=== PATIENT | female | born 1955 | race Caucasian/White ===

== ENCOUNTER 2017-04-25 13:17 | Emergency (ER) | payer MEDICARE, OTHER ==
[2017-04-25 13:41] VITALS: BP 116/67
[2017-04-25] MEDS ORDERED: HYDROmorphone 1 MG/ML Syringe IM ONE (13:58)
--- NOTE | 2017-04-25 14:04 | EDM.PDOC ---
ED HPI GENERAL MEDICAL PROBLEM - General Chief Complaint: Upper Extremity Injury/Pain Stated Complaint: PAIN Time Seen by Provider: 04/25/17 13:50 Source of Information: Reports: Patient History Limitations: Reports: No Limitations - History of Present Illness INITIAL COMMENTS - FREE TEXT/NARRATIVE: This 61 yo female patient reports to the ED with left side chest/breast pain. The patient reports her pain started last Sunday after a ground level fall. The patient has been seen in the [facility] twice this week for the pain, had a chest x-ray and a chest CT. The patient was advised that if her pain is unbearable she should come to the ED. The patient is under a pain management provider at [facility] in [place]. Onset Date: 04/20/17 Duration: Constant Location: Reports: Chest (left side of chest/breast) Quality: Reports: Ache, Sharp Severity: Severe Improves with: Reports: None Worsens with: Reports: None Context: Reports: Trauma (ground level fall) Left Breast Pain Score (Numeric/FACES): 8 - Related Data Allergies Allergy/AdvReac Type Severity Reaction Status Date / Time aspirin Allergy Unknown UNKNOWN Verified 04/25/17 13:49 atenolol Allergy Unknown UNKNOWN Verified 04/25/17 13:49 atorvastatin Allergy Unknown UNKNOWN Verified 04/25/17 13:49 celecoxib Allergy Unknown UNKNOWN Verified 04/25/17 13:49 erythromycin base Allergy Unknown UNKNOWN Verified 04/25/17 13:49 hydrocortisone Allergy Unknown UNKNOWN Verified 04/25/17 13:49 ibuprofen Allergy Unknown UNKNOWN Verified 04/25/17 13:49 indomethacin Allergy Unknown UNKNOWN Verified 04/25/17 13:49 nabumetone [From Relafen] Allergy Unknown UNKNOWN Verified 04/25/17 13:49 naproxen Allergy Unknown UNKNOWN Verified 04/25/17 13:49 Penicillins Allergy Unknown Rash Verified 04/25/17 13:49 rofecoxib Allergy Unknown UNKNOWN Verified 04/25/17 13:49 sulindac Allergy Unknown UNKNOWN Verified 04/25/17 13:49 NSAIDS (Non-Steroidal Allergy UNKNOWN Verified 04/25/17 13:49 Anti-Inflamma MOLDS Allergy Unknown UNKNOWN Uncoded 04/25/17 13:49 Home Meds: Home Meds Acetaminophen [Tylenol] 04/25/17 [History] Gabapentin [Neurontin] 04/25/17 [History] Methadone 04/25/17 [History] Past Medical History Musculoskeletal History: Reports: Fibromyalgia Oncologic (Cancer) History: Reports: Breast - Past Surgical History HEENT Surgical History: Reports: Other (See Below) Other HEENT Surgeries/Procedures: Thyroid GI Surgical History: Reports: Cholecystectomy Other GI Surgeries/Procedures: Bowel adhesions, gastric bypass Female Surgical History: Reports: Breast Implant, Section Other Female Surgeries/Procedures: Vulvectomy Endocrine Surgical History: Reports: Thyroidectomy Oncologic Surgical History: Reports: Mastectomy Social & Family History - Family History Family Medical History: Noncontributory - Tobacco Use Smoking Status *Q: Former Smoker Used Tobacco, but Quit: No - Caffeine Use Caffeine Use: Reports: None - Recreational Drug Use Recreational Drug Use: No Review of Systems - Review of Systems Review Of Systems: ROS reveals no pertinent complaints other than HPI. ED EXAM, GENERAL - Physical Exam Exam: See Below Exam Limited By: No Limitations General Appearance: Alert, WD/WN, Moderate Distress Eye Exam: Bilateral Eye: EOMI, Normal Inspection, PERRL Ears: Normal External Exam, Normal Canal, Hearing Grossly Normal, Normal TMs Nose: Normal Inspection, Normal Mucosa, No Blood Throat/Mouth: Normal Inspection, Normal Lips, Normal Teeth, Normal Gums, Normal Oropharynx, Normal Voice, No Airway Compromise Head: Atraumatic, Normocephalic Neck: Normal Inspection, Supple, Non-Tender, Full Range of Motion Respiratory/Chest: No Respiratory Distress, Lungs Clear, Normal Breath Sounds, No Accessory Muscle Use, Other (tender left chest) Cardiovascular: Normal Peripheral Pulses, Regular Rate, Rhythm, No Edema, No Gallop, No JVD, No Murmur, No Rub GI/Abdominal: Normal Bowel Sounds, Soft, Non-Tender, No Organomegaly, No Distention, No Abnormal Bruit, No Mass (Female) Exam: Deferred Rectal (Female) Exam: Deferred Back Exam: Normal Inspection, Full Range of Motion, NT Extremities: Normal Inspection, Normal Range of Motion, Non-Tender, Normal Capillary Refill, No Pedal Edema Neurological: Alert, Oriented, CN II-XII Intact, Normal Cognition, Normal Gait, Normal Reflexes, No Motor/Sensory Deficits Psychiatric: Normal Affect, Normal Mood Skin Exam: Warm, Dry, Intact, Normal Color, No Rash Course - Vital Signs Last Recorded V/S: Last Vital Signs Temp 36.9 C 04/25/17 13:20 Pulse 73 04/25/17 13:20 Resp 16 04/25/17 13:20 BP 116/67 04/25/17 13:20 Pulse Ox 99 04/25/17 13:20 Departure - Departure Time of Disposition: 14:15 Disposition: Home, Self-Care 01 Condition: Fair Clinical Impression: Anterior chest wall pain - Discharge Information Instructions: Chest Wall Pain, [id number] Care Plan Goals: The patient was advised of the examination, CT and consult results during the visit. The patient was given an injection of Dilaudid while in the ED. The patient was encouraged to contact her pain management provider for continued management of her pain. If the patient has any additional symptoms or concerns, the patient should follow-up with her primary care facility, her pain management facility or return to the emergency department.
== END 2017-04-25 14:26 | disposition home or self-care (01) ==
LOC: DL.ED 13:17
DX: R07.89 Other chest pain (principal); Z88.8 Allergy status to other drugs, medicaments and biological substances; Z88.0 Allergy status to penicillin; Z88.6 Allergy status to analgesic agent; Z87.891 Personal history of nicotine dependence; Z90.49 Acquired absence of other specified parts of digestive tract; Z85.3 Personal history of malignant neoplasm of breast; N64.4 Mastodynia; Z98.890 Other specified postprocedural states
CPT/HCPCS: 71250; 96372; 99283; J1170